=== PATIENT | male | born 1960 | race Caucasian/White ===

== ENCOUNTER 2016-08-26 17:19 | Emergency (ER) | payer OTHER ==
[2016-08-26 17:26] VITALS: RESP 16
--- NOTE | 2016-08-26 17:39 | EDPHY ---
H & P Time Seen by Provider: 08/26/16 17:28 HPI/ROS: CHIEF COMPLAINT: Puncture wound right leg HISTORY OF PRESENT ILLNESS: 55-year-old male presents to the emergency department by private vehicle with his with a puncture wound to his right lower leg. Patient was at home doing a bathroom remodel and he was using a chisel and hammer and chisel slipped from the board and hit him in his right lower leg. He thinks that the very tip of the chisel is imbedded in his leg. The incident happened just prior to arrival. He believes his last tetanus shot was in 2008. He denies any other trauma or injury. He was able to control the bleeding with firm direct pressure. He is complaining of some burning sensation in his right lower leg. ROS: Denies numbness or tingling in his toes, pain in his right ankle or right knee. Past Medical/Surgical History: Hyperlipidemia, appendectomy, orthopedic surgery Social History: Smoking Status: Never smoked Physical Exam: On examination the patient has a small less than 1 cm puncture wound to the anterior aspect of the right mid lower leg. There is slow active bleeding noted. He has surrounding tenderness with palpation around the right anterior mid tibia. No palpable crepitus or other bony abnormality. Normal sensation to light touch with normal 2 point discrimination. Strong dorsalis pedis pulse on the dorsal aspect of his right foot. Full dorsi and plantar flexion against resistance without difficulty. Constitutional: Initial Vital Signs Temperature (C) 37.0 C 08/26/16 17:23 Heart Rate 88 08/26/16 17:23 Respiratory Rate 16 08/26/16 17:23 Blood Pressure 113/79 08/26/16 17:23 O2 Sat (%) 98 08/26/16 17:23 O2 Delivery Mode Room Air Allergies/Adverse Reactions: No Known Allergies Allergy (Unverified 02/12/15 22:19) Home Medications: Medication Instructions Recorded [place]-3 Ethyl Est-Lovaza [Lovaza] 4 gm PO DAILY 04/09/15 Tears/Hypromellose [Natural 1 - 2 drops EACHEYE DAILY PRN 04/09/15 Balance] Cephalexin [Keflex] 500 mg PO QID #28 cap 08/26/16 MDM/Departure - MDM Imaging Results: X-rays of the right tib-fib reveal retained metallic foreign body overlying right mid tibia. No evidence of obvious fracture. This is reviewed by myself. Radiology interpretation to follow. X-rays of the right tib-fib were repeated after metallic foreign body removed and there was no evidence of fracture or evidence of further retained radiopaque foreign body. Procedures: After consent was obtained, 1% lidocaine with epinephrine was instilled into the wound. The metallic foreign body was removed in 1 piece. The wound was then thoroughly irrigated and dressing applied. No sutures placed. ED Course/Re-evaluation: 55-year-old male presents to the emergency department with soft tissue foreign body his right leg. See procedure note. The patient understands that sutures are not going to be placed given the risk of infection. He will be started on Keflex to prevent infection. Was also encouraged to avoid any open water. - Depart Disposition: Home, Routine, Self-Care Clinical Impression: Soft tissues foreign body Condition: Good Instructions: Soft Tissue Foreign Body (ED), Acute Wounds (ED) Additional Instructions: Return if you notice any signs or symptoms of infection such as redness, swelling, increased pain, fever, purulent drainage. Keflex 500 mg 4 times daily for 1 week to prevent infection. Ibuprofen 600 mg every 8 hours as needed for pain. Please avoid any open water such as swimming pool, hot tub, [place] or [place] until the wound has completely healed. Prescriptions: Cephalexin [Keflex] 500 mg PO QID #28 cap Referrals: Santiago Mcdonough MD [Primary Care Provider] - As per Instructions
[2016-08-26] MEDS ORDERED: CEPHALEXIN 500 MG CAP PO ONE (18:39)
[2016-08-26 18:43] VITALS: BP 112/67; PULSE 87; TEMP 98.1; O2SAT 96
== END 2016-08-26 18:43 | disposition home or self-care (01) ==
DX: S81.841A Puncture wound with foreign body, right lower leg, initial encounter (principal); W45.8XXA Other foreign body or object entering through skin, initial encounter; Y92.009 Unspecified place in unspecified non-institutional (private) residence as the place of occurrence of the external cause; Y99.8 Other external cause status; Y93.89 Activity, other specified